=== PATIENT | male | born 1930 | race Caucasian/White ===

== ENCOUNTER 2016-12-18 11:56 | Emergency (ER) | payer OTHER ==
[~2016-12-18] VITALS: Ht 180.3 cm; Wt 72.0 kg
[2016-12-18 12:52] LABS: EOSINOPHIL (%) 0.2 % (0-5); HEMATOCRIT 39.4 % (38.0-50.0); IMMATURE GRANULOCYTE (%) 2.1 % (0.0-0.7); IMMATURE GRANULOCYTE COUNT 0.3 K/uL; INSTRUMENT ABS NEUTROPHIL CT 9.4 K/uL; LYMPHOCYTE COUNT 1.7 K/uL (1.0-2.8); MCH 29.2 PG (29.0-34.0); MCHC 32.2 G/DL (30.0-36.0); MCV 90.6 FL (86-99); MEAN PLAT.VOLUME 11.3 uM^3 (9.0-12.4); MONOCYTE (%) 15.2 % (3-12); NEUTROPHIL (%) 70.1 % (45-76); NEUTROPHIL COUNT 9.4 K/uL (1.8-6.4); PLATELET COUNT 186 K/uL (156-360); RBC DIS.WIDTH-CV 14.8 % (11.8-14.6); RED BLOOD COUNT 4.35 M/uL (4.00-5.50); WHITE BLOOD COUNT 13.4 K/uL (4.1-10.2)
[2016-12-18 13:03] LABS: CHLORIDE 105 mEq/L (99-109); POTASSIUM 3.8 mEq/L (3.7-5.4); SODIUM 140 mEq/L (136-147)
[2016-12-18 13:04] LABS: GLUCOSE 115 mg/dL (70-99)
[2016-12-18 13:06] LABS: ANION GAP 12 MEQ/L (2-14)
[2016-12-18 13:08] LABS: GFR ESTIMATE (CALCULATED) 41 mL/min/
[2016-12-18 13:09] LABS: UREA NITROGEN (BUN) 30 mg/dL (9-23)
[2016-12-18 16:17] LABS: ADD MIUA? YES; BILIRUBIN NEGATIVE; BLOOD NEGATIVE; COLOR AMBER ((YELLOW)); GLUCOSE (STRIP) NEGATIVE; KETONES NEGATIVE; LEUKOCYTES NEGATIVE; NITRITE NEGATIVE; PROTEIN (STRIP) 30; SPECIFIC GRAVITY 1.019 (1.000-1.030)
[2016-12-18 16:24] LABS: BACTERIA RARE /HPF; EPITHELIAL CELLS NONE SEEN /HPF; MUCUS TRACE /LPF; RED BLOOD CELLS 0-5 /HPF (0-5); UCUL ADDED? NO; WHITE BLOOD CELLS 0-5 /HPF (0-5)
[2016-12-18 19:03] VITALS: BP 160/76
== END 2016-12-18 19:04 | disposition home or self-care (01) ==
LOC: EME 11:56
PROVIDERS: Emergency Medicine
DX: R19.7 Diarrhea, unspecified (principal); E86.0 Dehydration; F03.90 Unspecified dementia, unspecified severity, without behavioral disturbance, psychotic disturbance, mood disturbance, and anxiety
CPT/HCPCS: 80048; 81003; 85025; 87493; 99281; 99285

== ENCOUNTER 2017-07-09 00:20 | Inpatient (IN) | payer OTHER ==
[~2017-07-09] VITALS: Ht 175.3 cm; Wt 62.3 kg
[2017-07-09 01:08] LABS: BASOPHIL (%) 0.1 % (0-1); EOSINOPHIL (%) 0 % (0-5); HEMATOCRIT 33.3 % (38.0-50.0); HEMOGLOBIN 10.8 G/DL (12.5-16.6); IMMATURE GRANULOCYTE (%) 1.3 % (0.0-0.7); LYMPHOCYTE (%) 3.7 % (15-42); LYMPHOCYTE COUNT 0.7 K/uL (1.0-2.8); MCHC 32.4 G/DL (30.0-36.0); MCV 89.3 FL (86-99); MONOCYTE COUNT 2.2 K/uL (0-0.8); NEUTROPHIL (%) 83.9 % (45-76); NEUTROPHIL COUNT 16.8 K/uL (1.8-6.4); PLATELET COUNT 151 K/uL (156-360); RBC DIS.WIDTH-CV 16.2 % (11.8-14.6); RBC DIS.WIDTH-SD 53.5 % (39-53); RED BLOOD COUNT 3.73 M/uL (4.00-5.50)
[2017-07-09 01:14] LABS: ALBUMIN 3.8 g/dL (3.2-4.8); CHLORIDE 108 mEq/L (99-109); POTASSIUM 4.4 mEq/L (3.7-5.4); SODIUM 140 mEq/L (136-147)
[2017-07-09 01:16] LABS: GLUCOSE 137 mg/dL (70-99); TOTAL PROTEIN 7.1 g/dL (6.4-8.3)
[2017-07-09 01:18] LABS: TOTAL BILIRUBIN 1.5 mg/dL (0.0-1.0)
[2017-07-09 01:20] LABS: ALKALINE PHOSPHATASE 91 IU/L (3-129); CREATININE 1.9 mg/dL (0.6-1.3); GFR ESTIMATE (CALCULATED) 36 mL/min/ (58.99-99999)
[2017-07-09 01:21] LABS: UREA NITROGEN (BUN) 30 mg/dL (9-23)
[2017-07-09 01:22] LABS: AST (GOT) 11 IU/L (2-34)
[2017-07-09 01:23] LABS: ALT (GPT) 12 IU/L (3-49); TROP-I INTERPRETATION NEGATIVE; TROPONIN-I < 0.01 ng/mL (0.0-0.30)
[2017-07-09 04:55] VITALS: BP 92/55
[2017-07-09 14:16] LABS: TROP-I INTERPRETATION NEGATIVE; TROPONIN-I < 0.01 ng/mL (0.0-0.30)
[2017-07-09] MEDS ORDERED: HYTRIN2 MG PO (15:29)
[2017-07-09] MEDS ORDERED: SYMBICORT60 INHALAT IH (15:31)
[2017-07-09] MEDS ORDERED: ZOLOFT100 MG PO (15:32)
[2017-07-09] MEDS ORDERED: REMERON15 M2 PO (15:33)
[2017-07-09] MEDS ORDERED: NAMENDA5 MG PO (15:34)
[2017-07-09] MEDS ORDERED: ARICEPT10 MG PO (15:34)
[2017-07-09] MEDS ORDERED: PRILOSEC20 MG PO (15:36)
[2017-07-09] MEDS ORDERED: PRESERVISION T1 EACH PO (15:37)
[2017-07-09] MEDS ORDERED: PROSCAR5 MG PO (15:38)
[2017-07-09] MEDS ORDERED: [UNRECOGNIZED DRUG - OTHER] PO (15:45)
[2017-07-09] MEDS ORDERED: COMBIVENT RESPIM4 GM IH (15:46)
[2017-07-09] MEDS ORDERED: TYLENOL REGULA325 MG PO (15:46)
[2017-07-09] MEDS ORDERED: ANTI-DIARRHEA2 MG PO (15:48)
[2017-07-09 16:11] VITALS: BP 104/54
[2017-07-09 19:11] LABS: TROP-I INTERPRETATION NEGATIVE; TROPONIN-I < 0.01 ng/mL (0.0-0.30)
[2017-07-09 19:25] VITALS: BP 109/62
[2017-07-09 23:47] VITALS: BP 123/59
[2017-07-10 06:25] LABS: BASOPHIL (%) 0.1 % (0-1); EOSINOPHIL (%) 0.4 % (0-5); EOSINOPHIL COUNT 0.1 K/uL (0-0.3); HEMATOCRIT 29.6 % (38.0-50.0); HEMOGLOBIN 9.2 G/DL (12.5-16.6); IMMATURE GRANULOCYTE (%) 0.7 % (0.0-0.7); LYMPHOCYTE (%) 14.2 % (15-42); LYMPHOCYTE COUNT 1.7 K/uL (1.0-2.8); MCH 28.2 PG (29.0-34.0); MCHC 31.1 G/DL (30.0-36.0); MCV 90.8 FL (86-99); MONOCYTE (%) 7.9 % (3-12); MONOCYTE COUNT 0.9 K/uL (0-0.8); NEUTROPHIL (%) 76.7 % (45-76); NEUTROPHIL COUNT 9.1 K/uL (1.8-6.4); PLATELET COUNT 153 K/uL (156-360); RBC DIS.WIDTH-CV 16.2 % (11.8-14.6); RBC DIS.WIDTH-SD 54.6 % (39-53); RED BLOOD COUNT 3.26 M/uL (4.00-5.50); WHITE BLOOD COUNT 11.9 K/uL (4.1-10.2)
[2017-07-10 06:45] LABS: ALBUMIN 3.2 G/DL (3.2-4.8); ALKALINE PHOSPHATASE 69 IU/L (3-129); ALT (GPT) 10 IU/L (3-49); AST (GOT) 13 IU/L (2-34); CHLORIDE 107 MEQ/L (99-109); CREATININE 1.8 MG/DL (0.6-1.3); GFR ESTIMATE (CALCULATED) 38 mL/min/ (58.99-99999); POTASSIUM 4.1 MEQ/L (3.7-5.4); SODIUM 141 MEQ/L (136-147); TOTAL BILIRUBIN 0.7 MG/DL (0.0-1.0); TOTAL PROTEIN 5.7 G/DL (6.4-8.3); UREA NITROGEN (BUN) 32 mg/dL (9-23)
[2017-07-10 06:46] LABS: GLUCOSE 96 mg/dL (70-99)
[2017-07-10 07:53] VITALS: BP 107/67
[2017-07-10 16:18] VITALS: BP 110/65
[2017-07-10 23:09] VITALS: BP 114/55
[2017-07-11 07:28] LABS: HEMATOCRIT 30.6 % (38.0-50.0); HEMOGLOBIN 9.8 G/DL (12.5-16.6); MCH 28.7 PG (29.0-34.0); MCV 89.7 FL (86-99); RED BLOOD COUNT 3.41 M/uL (4.00-5.50); WHITE BLOOD COUNT 8.5 K/uL (4.1-10.2)
[2017-07-11 07:52] VITALS: BP 140/60
[2017-07-11 07:55] LABS: PLAT.SUFFICIENCY ADEQUATE; PLATELET CLUMPS PRESENT - PLATELET COUNT APPEARS ADQ.
[2017-07-11 08:17] LABS: PLATELET COUNT UNABLE TO REPORT K/uL (156-360)
[2017-07-11 09:33] LABS: CHLORIDE 105 MEQ/L (99-109); CREATININE 1.7 MG/DL (0.6-1.3); GFR ESTIMATE (CALCULATED) 41 mL/min/ (58.99-99999); GLUCOSE 91 mg/dL (70-99); SODIUM 141 MEQ/L (136-147); UREA NITROGEN (BUN) 30 mg/dL (9-23)
[2017-07-11] MEDS ORDERED: LEVAQUIN500 MG PO (11:57)
[2017-07-11] MEDS ORDERED: PREDNISONE5 MG PO (11:57)
[2017-07-11 15:15] VITALS: BP 134/72
== END 2017-07-11 15:37 | disposition home or self-care (01) | DRG 193 ==
LOC: EME → EDBD 00:20 → EME 00:20 → EDOF 02:55 → ENRESERV 02:56 → 5SOUTH 04:44
PROVIDERS: Emergency Medicine; Hospitalist; Internal Medicine Pulmonary Disease
DX: J15.9 Unspecified bacterial pneumonia (principal); J96.01 Acute respiratory failure with hypoxia; J44.1 Chronic obstructive pulmonary disease with (acute) exacerbation; J44.0 Chronic obstructive pulmonary disease with (acute) lower respiratory infection; I71.4 Abdominal aortic aneurysm, without rupture; N18.3 Chronic kidney disease, stage 3 (moderate); J90 Pleural effusion, not elsewhere classified; I45.10 Unspecified right bundle-branch block; D64.9 Anemia, unspecified; F03.90 Unspecified dementia, unspecified severity, without behavioral disturbance, psychotic disturbance, mood disturbance, and anxiety; H90.5 Unspecified sensorineural hearing loss; F32.9 Major depressive disorder, single episode, unspecified; F41.9 Anxiety disorder, unspecified; Z87.01 Personal history of pneumonia (recurrent); Z87.891 Personal history of nicotine dependence
CPT/HCPCS: 70450; 71046; 78582; 80048; 80053; 81003; 83605; 84484; 85025; 85027; 85379; 87040; 87070; 87205; 87449; 92610 GN; 93005; 93970; 94640; 94640 76; 94667; 94668; 94760; 94799; 99202; 99281; 99284; A9540; A9567; J0456; J0696; J1644; J1956; J7030; J7512